=== PATIENT | female | born 1970 | race Hispanic/Latino ===

== ENCOUNTER 2016-03-04 10:15 | Outpatient (CLI) | payer OTHER ==
--- NOTE | 2016-03-05 09:50 | Mammography Report ---
BILATERAL DIGITAL SCREENING MAMMOGRAM with CAD : 03/04/16 CLINICAL: Routine screening.Status post bilateral reduction mammoplasty. COMPARISON:None available. FINDINGS: The breasts are heterogeneously dense, which may obscure small masses.Mild bilateral benign scar. No mass, architectural distortion or suspicious calcifications. IMPRESSION: No mammographic evidence of malignancy. BI-RADS CATEGORY: 2 -- Benign RECOMMENDATION: Routine mammographic screening in one year. COMMENT: Patient follow-up letters are generated by our [email or web address] application.
== END 2016-03-04 10:16 | disposition home or self-care (01) ==
LOC: SPVWC 10:15
PROVIDERS: ATTEND Family Medicine
DX: Z12.31 Encounter for screening mammogram for malignant neoplasm of breast (principal)
CPT/HCPCS: 77067; G0202

== ENCOUNTER 2016-05-09 09:43 | Outpatient (CLI) | payer OTHER ==
--- NOTE | 2016-05-09 11:14 | Ultrasound Report ---
Thyroid ultrasound: The thyroid gland is homogeneous except for a 6.7 mm simple thyroid cyst in the right lobe. The right lobe measures 14 x 17 x 41 mm. The left lobe measures 14 x 13 x 39 mm. The isthmus has a thickness of 2.5 mm. These findings are generally unchanged from her prior exam on March 22, 2015. Impression: Right thyroid cyst. No followup for this finding required. Normal thyroid size.
== END 2016-05-09 09:44 | disposition home or self-care (01) ==
LOC: SPVWC 09:43
PROVIDERS: ATTEND Family Medicine
DX: E04.1 Nontoxic single thyroid nodule (principal)
CPT/HCPCS: 76536

== ENCOUNTER 2017-07-03 14:51 | Outpatient (CLI) | payer OTHER ==
--- NOTE | 2017-07-04 09:15 | XRay Report ---
RIGHT ANKLE RADIOGRAPHS INDICATION: Right ankle pain. COMPARISON: None similar. FINDINGS: AP, lateral and oblique right ankle radiographs demonstrate intact mortise, malleoli and talar dome contour. Diffuse ankle soft tissue swelling noted, greatest laterally. Some swelling/edema diffusely involving the imaged lower leg also not excluded. Please correlate. CONCLUSION: Right ankle soft tissue swelling suspected without acute bony abnormality, as described. Please correlate. Thank you for the opportunity to participate in this patient's care.
== END 2017-07-03 14:52 | disposition home or self-care (01) ==
LOC: SPVIMAG 14:51
PROVIDERS: ATTEND Family Medicine
DX: M25.571 Pain in right ankle and joints of right foot (principal)

== ENCOUNTER 2018-12-13 08:14 | Outpatient (CLI) | payer OTHER ==
--- NOTE | 2018-12-13 09:38 | Mammography Report ---
DIGITAL SCREENING MAMMOGRAM WITH CAD, 12/13/2018 INDICATION: Routine screening mammography. TECHNIQUE: Digital bilateral 2D mammography was obtained in the craniocaudal and mediolateral obliq ue projections. This examination was interpreted with the benefit of Computer-Aided Detection analysi s. COMPARISON: 12/09/2017 FINDINGS: Breast Density: The breasts are heterogeneously dense, which may obscure small masses. There is no evidence of dominant mass, suspicious calcifications or architectural distortion in eithe r breast. IMPRESSION: No mammographic evidence of malignancy. Follow up recommendation: Routine yearly BI-RADS Category 1: Negative. A "normal" or negative report should not discourage follow up or biopsy of a clinically significant f inding. A written summary of these findings will be mailed to the patient. The patient will be entered into a mammography reporting system which will generate a reminder letter for the patient's next appointmen t at the appropriate interval. The [employer] recommends yearly mammograms starting at age 40 and continuing as l yeimi as a woman is in good health. Breast MRI is recommended for women with an approximate 20-25% or greater lifetime risk of breast cancer, including women with a strong family history of breast or ova julissa cancer or who have been treated for Hodgkin's disease. Signer Name: Jay Swan MD Signed: 12/13/2018 9:34 AM Workstation Name: [id number]
== END 2018-12-13 08:15 | disposition home or self-care (01) ==
LOC: SPVWC 08:14
PROVIDERS: ATTEND Family Medicine
DX: Z12.31 Encounter for screening mammogram for malignant neoplasm of breast (principal)
CPT/HCPCS: 77067

== ENCOUNTER 2018-12-20 08:06 | Outpatient (CLI) | payer OTHER ==
--- NOTE | 2018-12-20 11:41 | Ultrasound Report ---
ULTRASOUND THYROID INDICATION / CLINICAL INFORMATION: GOITER. COMPARISON: 05/09/2016 FINDINGS: RIGHT LOBE: The right lobe measures 4.6 x 1.5 x 1.8 cm. Right lobe has a heterogeneous nodular echo p attern. A slightly larger benign cyst of the upper mid right lobe measures 9 x 5 x 7 mm compared to 7 x 4 x 6 mm on the last exam. A 4 mm hypoechoic nodule of the inferior right lobe. LEFT LOBE: The left lobe measures 4.3 x 1.7 x 1.8 cm. The left lobe has a heterogeneous nodular echo pattern. A couple of tiny benign cysts measuring 3 mm. ISTHMUS: A heterogeneous solid nodule of the right aspect of the isthmus measures 9 x 4 x 9 mm. Thick ness = 0.4 cm. LYMPH NODES: A 2.3 cm left jugular lymph node has central fat and benign morphology. PARATHYROID GLANDS: No abnormal parathyroid gland. ADDITIONAL FINDINGS: None. IMPRESSION: 1. Multinodular thyroid with benign appearing nodules. 2. No suspicious finding. Note: Nodule size based on mean (average) size of 3 dimensions. Note: Nodules < 1 cm do not typically require follow-up or FNA unless there are suspicious features ( LUZMA, 2015) ACR TI-RADS Thyroid Nodule Recommendations TI-RADS 1 (0 points) -- Benign. No FNA or follow-up. TI-RADS 2 (1-2 points) -- Not suspicious. No FNA or follow-up. TI-RADS 3 (3 points) -- Mildly suspicious. Follow up in 1 year if 1.5 cm. FNA if 2.5 cm. TI-RADS 4 (4-6 points) -- Moderately suspicious. Follow up in 1 year if 1.0 cm. FNA if 1.5 cm. TI-RADS 5 (7+ points) -- Highly suspicious. Follow up in 1 year if 0.5 cm. FNA if 1.0 cm. Signer Name: Jay Swan MD Signed: 12/20/2018 11:36 AM Workstation Name: [id number]
== END 2018-12-20 08:07 | disposition home or self-care (01) ==
LOC: SPVWC 08:06
PROVIDERS: ATTEND Family Medicine
DX: E04.2 Nontoxic multinodular goiter (principal)
CPT/HCPCS: 76536